=== PATIENT | female | born 1980 | race African-American/Black ===

== ENCOUNTER 2017-02-20 16:59 | Emergency (ER) | payer SELFPAY ==
[~2017-02-20] VITALS: Ht 175.3 cm; Wt 125.0 kg
[~2017-02-20 16:59] MED LIST: CIPRO500 MG OR; FLEXERIL5 MG PO; FOLIC ACID1 MG OR; MEDDOSEPAK OR; MEDDOSEPAK PO; NAPROSYN375 MG PO; NAPROSYN500 MG OR; NAPROSYN500 MG PO; NAPROXEN500 MG PO; NO; NO MEDS; ONDANSETRON4 MG PO; PRENATAL1 TAB OR; PROVENTIL0.083 % IN; ZITHROMAX250 MG PO; ZOFRAN ODT4 MG PO; ZPAK PO
[2017-02-20] MEDS ORDERED: TRAMADOL HYDROC50 MG PO (22:24)
[2017-02-20] MEDS ORDERED: ORPHENADRINE C100 M1 PO (22:24)
[2017-02-20 22:30] VITALS: BP 126/81
== END 2017-02-20 22:45 | disposition home or self-care (01) | DRG 558 ==
LOC: ED 16:59
DX: M75.51 Bursitis of right shoulder (principal); M25.511 Pain in right shoulder

== ENCOUNTER 2018-10-10 02:02 | Emergency (ER) | payer SELFPAY ==
[~2018-10-10] VITALS: Ht 175.3 cm; Wt 118.6 kg
[~2018-10-10 02:02] MED LIST changes: +ORPHENADRINE C100 M1 PO; +TRAMADOL HYDROC50 MG PO
[2018-10-10] MEDS ORDERED: BIAXIN500 MG PO (03:15)
[2018-10-10] MEDS ORDERED: ZOFRAN ODT4 MG PO (03:15)
[2018-10-10] MEDS ORDERED: MOTRIN800 MG PO (03:15)
[2018-10-10 03:55] VITALS: BP 126/75
== END 2018-10-10 03:55 | disposition home or self-care (01) | DRG 153 ==
LOC: ED 02:02
DX: J03.90 Acute tonsillitis, unspecified (principal); R51 Headache; R09.81 Nasal congestion; F17.210 Nicotine dependence, cigarettes, uncomplicated; Z72.89 Other problems related to lifestyle; M79.10 Myalgia, unspecified site; R11.0 Nausea

== ENCOUNTER 2019-10-20 | Emergency (ER) | payer BC, MEDICAID ==
[~2019-10-20] MED LIST changes: +BIAXIN500 MG PO; +MOTRIN800 MG PO
[2019-10-20] MEDS ORDERED: GENTAMICIN SULF5 ML OS (11:33)
== END 2019-10-20 11:39 | disposition home or self-care (01) | DRG 918 ==
DX: T52.8X1A Toxic effect of other organic solvents, accidental (unintentional), initial encounter (principal); H10.212 Acute toxic conjunctivitis, left eye; F17.210 Nicotine dependence, cigarettes, uncomplicated; S05.02XA Injury of conjunctiva and corneal abrasion without foreign body, left eye, initial encounter; X58.XXXA Exposure to other specified factors, initial encounter

== ENCOUNTER 2019-10-20 | Emergency (ER) | payer SELFPAY ==
[2019-10-20] MEDS ORDERED: GENTAMICIN SULF5 ML OS (11:33)
== END 2019-10-20 21:32 | disposition home or self-care (01) | DRG 918 ==
DX: T52.8X1A Toxic effect of other organic solvents, accidental (unintentional), initial encounter (principal); H10.212 Acute toxic conjunctivitis, left eye; S05.02XA Injury of conjunctiva and corneal abrasion without foreign body, left eye, initial encounter; X58.XXXA Exposure to other specified factors, initial encounter; F17.210 Nicotine dependence, cigarettes, uncomplicated

== ENCOUNTER 2022-10-30 01:41 | Emergency (ER) | payer OTHER ==
[~2022-10-30] VITALS: Ht 175.3 cm; Wt 112.0 kg
[2022-10-30] VITALS (10 sets, daily range): BP systolic 100–116; BP diastolic 57–80
[~2022-10-30 01:41] MED LIST changes: +GENTAMICIN SULF5 ML OS
[2022-10-30 02:21] LABS: BASO% 0.4 % (0-3); EOS% 0.1 % (0-8); IMMATURE GRANULOCYTES 0.3 % (0.0-5.0); LYMPH% 20.5 % (15-41); MEAN CELL VOLUME 82.4 fL CALC (80.0-100.0); MEAN CORPUSCULAR HGB 26.1 pG CALC (26.0-32.0); MEAN CORPUSCULAR HGB CONC 31.7 g/dL CAL (32.0-36.0); MONO% 6.4 % (2-13); NEUT# 7.4 thou/uL (2.00-7.15); NEUT% 72.3 % (42-76); RED BLOOD COUNT 5.78 mill/uL (4.20-5.60); RED CELL DISTRI WIDTH 17.2 % (11.5-15.5)
[2022-10-30 02:34] LABS: HEMATOCRIT 47.6 % (37.0-47.0); HEMOGLOBIN 15.1 g/dl (12.0-16.0)
[2022-10-30 02:37] LABS: ALBUMIN 4.2 g/dL (3.2-5.0); ALKALINE PHOSPHATASE 81 u/l (38-126); BILIRUBIN, TOTAL 0.2 mg/dL (0.02-1.3); BUN 11 mg/dL (7-17); BUN/CREATININE RATIO 13 (12-20 (CALC)); CARBON DIOXIDE 28 mmol/l (22-30); CHLORIDE 103 mmol/l (95-108); CREATININE 0.8 mg/dL (0.5-1.0); GFR FOR AFR.AMER. > 60 ML/MIN (>=60 (CALC)); GFR OTHER RACES > 60 ML/MIN (>=60 (CALC)); SODIUM 137 mmol/l (137-146)
[2022-10-30 02:38] LABS: D-DIMER 0.71 mg/L (0.19-0.60)
[2022-10-30 02:39] LABS: URINE BILIRUBIN - DIPSTICK SMALL (NEGATIVE); URINE BLOOD DIPSTICK TRACE-INTACT (NEGATIVE); URINE COLOR YELLOW; URINE GLUCOSE - DIPSTICK NEGATIVE (NEGATIVE); URINE KETONE 15 mg/dL (NEGATIVE); URINE LEUK ESTERASE TRACE (NEGATIVE); URINE NITRITE - DIPSTICK NEGATIVE (Negative); URINE PH 6.5 (4.5-8.0); URINE PROTEIN - DIPSTICK 100 mg/dL (NEG-TRACE); URINE SPECIFIC GRAVITY 1.025
[2022-10-30 02:41] LABS: INTERNATIONAL NORMALIZED RATIO 1.1 RATIO (0.7-1.3); PROTHROMBIN TIME 10.8 SECONDS (9.0-12.5)
[2022-10-30 02:42] LABS: ANION GAP 10 (6-22 (CALC)); POTASSIUM 3.6 mmol/l (3.5-5.1); SGOT/AST 49 u/l (14-36); TOTAL PROTEIN 7.8 g/dL (6.3-8.2)
[2022-10-30 02:45] LABS: URINE BACTERIA FEW hpf; URINE SQUAMOUS EPITHELIAL CELL FEW EPI/hpf (0-FEW)
[2022-10-30] MEDS ORDERED: PREDNISONE50 MG PO (05:58)
[2022-10-30] MEDS ORDERED: PROMETHAZINE HY25 M1 PO (05:58)
[2022-10-30] MEDS ORDERED: VENTOLIN HFA IN (05:58)
== END 2022-10-30 06:27 | disposition home or self-care (01) | DRG 203 ==
LOC: ED 01:41
PROVIDERS: Family Medicine
DX: J45.901 Unspecified asthma with (acute) exacerbation (principal); F17.210 Nicotine dependence, cigarettes, uncomplicated; K52.9 Noninfective gastroenteritis and colitis, unspecified; F14.10 Cocaine abuse, uncomplicated; R11.2 Nausea with vomiting, unspecified
CPT/HCPCS: Q9967